=== PATIENT | male | born 1995 | race Caucasian/White ===

== ENCOUNTER 2024-03-10 04:50 | Emergency (ER) | payer MEDICAID ==
[2024-03-10] MEDS: Ondansetron 4 MG/2 ML SDV IVPUSH ONE ×2 (05:34→08:40)
[2024-03-10] MEDS: Morphine 4 MG/ML Syringe IVPUSH ONE ×2 (05:36→06:53)
[2024-03-10] MEDS: Lactated Ringers 1,000 ML IV SCH (05:42)
[2024-03-10] MEDS: Sodium Chloride 0.9% 10 ML Syringe FLUSH PRN ×2 (05:43→08:43)
[2024-03-10 05:44] LABS: BASOPHILS PERCENT AUTO 0.3 % (0.0-1.0); EOSINOPHILS PERCENT AUTO 0.3 % (0.0-6.0); HEMATOCRIT 51.5 % (42.0-52.0); IMMATURE GRAN ABSOLUTE AUTO 0.02 K/mm3 (0.00-0.05); IMMATURE GRAN PERCENT AUTO 0.3 % (0.0-0.4); LYMPHOCYTES ABSOLUTE AUTO 1.1 K/mm3 (1.0-4.8); LYMPHOCYTES PERCENT AUTO 16.9 % (24.0-44.0); MEAN CORPUSCULAR HEMOGLOBIN 34.1 pg (28.0-32.0); MEAN CORPUSCULAR VOLUME 97.5 fl (83.0-99.0); MEAN PLATELET VOLUME 10.6 fl (9.4-12.4); MONOCYTES ABSOLUTE AUTO 0.9 K/mm3 (0.0-0.8); MONOCYTES PERCENT AUTO 12.8 % (0.0-8.0); NEUTROPHILS ABSOLUTE AUTO 4.7 K/mm3 (1.8-7.7); NEUTROPHILS PERCENT AUTO 69.4 % (41.0-71.0); PLATELET COUNT,PLT 203 K/mm3 (150-400); RED BLOOD CELL COUNT 5.28 M/mm3 (4.52-5.90); WHITE BLOOD CELL COUNT,WBC 6.74 K/mm3 (3.9-11.3)
[2024-03-10 05:57] LABS: ALBUMIN 3.6 g/dl (3.4-5.0); ANION GAP 14.9 (5-15); BILIRUBIN TOTAL 1.1 mg/dL (0.2-1.0); BUN/CREATININE RATIO 2.3 (14-18); CREATININE 1.3 mg/dL (0.7-1.3); EST CRCL DRUG DOSING (CG) 86.57 mL/min; POTASSIUM,K 2.9 mEq/L (3.5-5.1); PROTEIN TOTAL,TP 7.1 g/dl (6.4-8.2)
[2024-03-10] MEDS: Potassium Chloride 10 MEQ in Premix Bag 1 BAG IV ONE (06:09)
[2024-03-10] MEDS ORDERED: Sodium Chloride 0.9% 10 ML Syringe FLUSH PRN (08:07)
[2024-03-10] MEDS ORDERED: Iopamidol 612 MG/ML 100 ML Bottle IVPUSH ONE (08:07)
[2024-03-10] MEDS: Iopamidol 612 MG/ML 100 ML Bottle IVPUSH ONE (08:43)
[2024-03-10 08:51] LABS: APPEARANCE,URINE SLT CLOUDY (Clear); BILIRUBIN,URINE 2+ (Negative); COLOR,URINE ORANGE (Yellow); GLUCOSE,URINE NEGATIVE (Negative); KETONES,URINE TRACE (Negative); LEUKOCYTE ESTERASE,URINE NEGATIVE (Negative); NITRITE,URINE NEGATIVE (Negative); OCCULT BLOOD,URINE NEGATIVE (Negative); PH,URINE 6.5 (5.0-8.0); PROTEIN,URINE 2+ (Negative)
[2024-03-10] MEDS: Morphine 4 MG/ML Syringe IVPUSH PRN (09:10)
[2024-03-10 09:43] LABS: BACTERIA,URINE MODERATE /hpf (FEW); MUCUS,URINE MODERATE /hpf (FEW); RBC,URINE 0-5 /hpf (0-5); SQUAMOUS EPITHELIAL CELLS,UR 0-5 /hpf (0-5); WBC,URINE 0-5 /hpf (0-5)
== END 2024-03-10 10:54 | disposition home or self-care (01) ==
LOC: JD.ED 04:50 → MERGE 04:50 → JD.ED 10:54
DX: R10.13 Epigastric pain (principal); R10.12 Left upper quadrant pain; E87.6 Hypokalemia; K86.2 Cyst of pancreas
CPT/HCPCS: 36415; 74177; 76705; 80053; 81001; 83690; 85025; 96361; 96365; 96375; 96376; 99284; J2270; J2405; J3480; J3490; J7120; Q9967

== ENCOUNTER 2024-03-22 07:03 | Emergency (ER) | payer MEDICAID ==
[2024-03-22] MEDS ORDERED: Thiamine 100 MG in Sodium Chloride 0.9% 100 ML IV ONE (08:11)
[2024-03-22] MEDS: LORazepam 2 MG/ML SDV IVPUSH ONE (08:27)
[2024-03-22] MEDS: Metoclopramide 10 MG/2 ML SDV IVPUSH ONE (08:30)
[2024-03-22] MEDS: Dextrose 5%-Lactated Ringers 1,000 ML IV SCH (08:34)
[2024-03-22] MEDS: HYDROmorphone 1 MG/ML Syringe IVPUSH ONE ×2 (08:34→11:14)
[2024-03-22 08:36] LABS: BASOPHILS PERCENT AUTO 0.6 % (0.0-1.0); EOSINOPHILS PERCENT AUTO 0.2 % (0.0-6.0); HEMATOCRIT 49.2 % (42.0-52.0); HEMOGLOBIN 17.1 gm/dl (14.0-18.0); IMMATURE GRAN ABSOLUTE AUTO 0.02 K/mm3 (0.00-0.05); IMMATURE GRAN PERCENT AUTO 0.4 % (0.0-0.4); LYMPHOCYTES ABSOLUTE AUTO 1.2 K/mm3 (1.0-4.8); LYMPHOCYTES PERCENT AUTO 25.6 % (24.0-44.0); MEAN CORPUSCULAR HEMOGLOBIN 35.2 pg (28.0-32.0); MEAN CORPUSCULAR HGB CONC 34.8 g/dl (32.0-36.0); MEAN CORPUSCULAR VOLUME 101.2 fl (83.0-99.0); MEAN PLATELET VOLUME 10.2 fl (9.4-12.4); MONOCYTES ABSOLUTE AUTO 0.5 K/mm3 (0.0-0.8); MONOCYTES PERCENT AUTO 10.3 % (0.0-8.0); NEUTROPHILS PERCENT AUTO 62.9 % (41.0-71.0); PLATELET COUNT,PLT 218 K/mm3 (150-400); RED BLOOD CELL COUNT 4.86 M/mm3 (4.52-5.90); WHITE BLOOD CELL COUNT,WBC 4.77 K/mm3 (3.9-11.3)
[2024-03-22] MEDS: Thiamine 200 MG/2 ML MDV IV ONE (08:37)
[2024-03-22 08:55] LABS: LACTIC ACID 3.7 mmol/L (0.4-2.0)
[2024-03-22 08:57] LABS: A/G RATIO 0.9 (1-2); ALANINE AMINOTRANSFERASE,ALT 72 U/L (16-63); ALKALINE PHOSPHATASE 149 U/L (46-116); ANION GAP 13.7 (5-15); ASPARTATE AMNIOTRANSFERASE,AST 58 U/L (15-37); BILIRUBIN TOTAL 0.8 mg/dL (0.2-1.0); BLOOD UREA NITROGEN,BUN 4 mg/dL (7-18); C-REACTIVE PROTEIN <0.05 mg/dL (<0.30); CALCIUM 8.6 mg/dL (8.5-10.1); CARBON DIOXIDE,CO2 30 mEq/L (21-32); CHLORIDE,CL 102 mEq/L (98-107); EST CRCL DRUG DOSING (CG) 112.54 mL/min; ESTIMATED GFR 104 mL/min (>60); ETHANOL BLOOD MEDICAL 0.05 gm% (0.00); GLUCOSE RANDOM 97 mg/dL (70-99); LIPASE 56 U/L (16-77); MAGNESIUM 1.6 mg/dL (1.8-2.4); POTASSIUM,K 2.7 mEq/L (3.5-5.1); PROTEIN TOTAL,TP 6.2 g/dl (6.4-8.2); SODIUM,NA 143 mEq/L (136-145)
[2024-03-22 09:51] LABS: APPEARANCE,URINE CLEAR (Clear); BILIRUBIN,URINE 1+ (Negative); COLOR,URINE DARK YELLOW (Yellow); GLUCOSE,URINE TRACE (Negative); KETONES,URINE TRACE (Negative); LEUKOCYTE ESTERASE,URINE NEGATIVE (Negative); NITRITE,URINE NEGATIVE (Negative); OCCULT BLOOD,URINE NEGATIVE (Negative); PH,URINE 8.5 (5.0-8.0); PROTEIN,URINE 2+ (Negative)
[2024-03-22 10:55] LABS: RBC,URINE 0-5 /hpf (0-5); WBC,URINE 0-5 /hpf (0-5)
[2024-03-22 10:56] LABS: BACTERIA,URINE MODERATE /hpf (FEW); MUCUS,URINE MANY /hpf (FEW); SQUAMOUS EPITHELIAL CELLS,UR 0-5 /hpf (0-5)
[2024-03-22] MEDS: Sodium Chloride 0.9% 10 ML Syringe FLUSH PRN (11:16)
[2024-03-22] MEDS: Iopamidol 612 MG/ML 100 ML Bottle IVPUSH ONE (11:26)
== END 2024-03-22 14:57 | disposition home or self-care (01) ==
LOC: JD.ED 07:03
DX: K85.20 Alcohol induced acute pancreatitis without necrosis or infection (principal); R10.12 Left upper quadrant pain; F10.90 Alcohol use, unspecified, uncomplicated; K21.9 Gastro-esophageal reflux disease without esophagitis; F17.210 Nicotine dependence, cigarettes, uncomplicated; Z79.899 Other long term (current) drug therapy
CPT/HCPCS: 36415; 74177; 80053; 80307; 81001; 82977; 83605; 83690; 83735; 83880; 85025; 86140; 96361; 96374; 96375; 96376; 99284; J1170; J2060; J2765; J3411; J3490; J7121; Q9967

== ENCOUNTER 2024-06-01 18:49 | Emergency (ER) | payer MEDICAID ==
[2024-06-01] MEDS ORDERED: Sodium Chloride 0.9% 10 ML Syringe FLUSH PRN (19:50)
[2024-06-01] MEDS: Ondansetron 4 MG/2 ML SDV IVPUSH ONE (20:49)
[2024-06-01] MEDS: Metoclopramide 10 MG/2 ML SDV IVPUSH ONE ×2 (20:49→22:41)
[2024-06-01] MEDS: Ondansetron 4 MG/2 ML SDV ONE (20:49)
[2024-06-01] MEDS: Sodium Chloride 0.9% 1,000 ML IV ONE (20:49)
[2024-06-01 21:10] LABS: BASOPHILS PERCENT AUTO 0.4 % (0.0-1.0); EOSINOPHILS PERCENT AUTO 0.3 % (0.0-6.0); HEMATOCRIT 41.8 % (42.0-52.0); HEMOGLOBIN 15.2 gm/dl (14.0-18.0); IMMATURE GRAN ABSOLUTE AUTO 0.05 K/mm3 (0.00-0.05); IMMATURE GRAN PERCENT AUTO 0.4 % (0.0-0.4); LYMPHOCYTES ABSOLUTE AUTO 1.9 K/mm3 (1.0-4.8); LYMPHOCYTES PERCENT AUTO 16.4 % (24.0-44.0); MEAN CORPUSCULAR HEMOGLOBIN 35.8 pg (28.0-32.0); MEAN CORPUSCULAR HGB CONC 36.4 g/dl (32.0-36.0); MEAN CORPUSCULAR VOLUME 98.4 fl (83.0-99.0); MEAN PLATELET VOLUME 9.8 fl (9.4-12.4); MONOCYTES ABSOLUTE AUTO 1.1 K/mm3 (0.0-0.8); MONOCYTES PERCENT AUTO 9.3 % (0.0-8.0); NEUTROPHILS ABSOLUTE AUTO 8.3 K/mm3 (1.8-7.7); NEUTROPHILS PERCENT AUTO 73.2 % (41.0-71.0); PLATELET COUNT,PLT 258 K/mm3 (150-400); RED BLOOD CELL COUNT 4.25 M/mm3 (4.52-5.90); WHITE BLOOD CELL COUNT,WBC 11.37 K/mm3 (3.9-11.3)
[2024-06-01 21:35] LABS: A/G RATIO 1.4 (1-2); ALBUMIN 4.1 g/dl (3.4-5.0); ANION GAP 16.9 (5-15); BILIRUBIN TOTAL 1.4 mg/dL (0.2-1.0); BUN/CREATININE RATIO 12.2 (14-18); CREATININE 0.9 mg/dL (0.7-1.3); EST CRCL DRUG DOSING (CG) 128.99 mL/min; POTASSIUM,K 2.9 mEq/L (3.5-5.1); PROTEIN TOTAL,TP 7.1 g/dl (6.4-8.2); TSH 1.508 uIU/mL (0.358-3.74)
[2024-06-01] MEDS ORDERED: Naloxone 0.4 MG/ML SDV IVPUSH PRN (21:45)
[2024-06-01] MEDS: Iopamidol 612 MG/ML 100 ML Bottle IVPUSH ONE (21:58)
[2024-06-01] MEDS: HYDROmorphone 0.5 MG/0.5 ML Syringe IVPUSH ONE (22:09)
[2024-06-01] MEDS: Sodium Chloride 0.9% 500 ML ONE (22:16)
[2024-06-01] MEDS: Potassium Chloride 10 MEQ in Premix Bag 1 BAG IV SCH (22:16)
[2024-06-01] MEDS: Potassium Chloride 20 MEQ Tab.ER PO ONE (22:41)
[2024-06-02] MEDS ORDERED: HYDROmorphone 0.5 MG/0.5 ML Syringe IVPUSH ONE (00:08)
== END 2024-06-02 00:46 | disposition home or self-care (01) ==
LOC: JD.ED 18:49
DX: K85.20 Alcohol induced acute pancreatitis without necrosis or infection (principal); F17.210 Nicotine dependence, cigarettes, uncomplicated; I10 Essential (primary) hypertension; K21.9 Gastro-esophageal reflux disease without esophagitis; Z79.899 Other long term (current) drug therapy; Z91.018 Allergy to other foods
CPT/HCPCS: 36415; 74177; 80053; 80143; 80179; 80307; 83690; 84443; 85025; 93005; 96361; 96365; 96366; 96375; 96376; 99284; A9270; J1170; J2405; J2765; J3480; J7030; J7040; Q9967; 93010

== ENCOUNTER 2024-06-15 04:33 | Emergency (ER) | payer MEDICAID ==
[2024-06-15] MEDS ORDERED: Sodium Chloride 0.9% 10 ML Syringe FLUSH PRN (04:56)
[2024-06-15] MEDS: Sodium Chloride 0.9% 10 ML Syringe FLUSH ONE (05:18)
[2024-06-15] MEDS: Iopamidol 755 Mg/ML 100 ML Bottle IVPUSH ONE (05:18)
[2024-06-15] MEDS: Sodium Chloride 0.9% 1,000 ML IV ONE (05:21)
[2024-06-15] MEDS: Ondansetron 4 MG/2 ML SDV IVPUSH ONE ×2 (05:22→08:44)
[2024-06-15] MEDS: HYDROmorphone 1 MG/ML Syringe IVPUSH ONE (05:25)
[2024-06-15 05:34] LABS: A/G RATIO 1.2 (1-2); ALBUMIN 3.6 g/dl (3.4-5.0); ANION GAP 14.8 (5-15); BILIRUBIN TOTAL 2.1 mg/dL (0.2-1.0); BUN/CREATININE RATIO 6.7 (14-18); CALCIUM 9.4 mg/dL (8.5-10.1); CREATININE 1.2 mg/dL (0.7-1.3); EST CRCL DRUG DOSING (CG) 95.26 mL/min; MAGNESIUM 1.1 mg/dL (1.8-2.4); POTASSIUM,K 2.8 mEq/L (3.5-5.1); PROTEIN TOTAL,TP 6.7 g/dl (6.4-8.2)
[2024-06-15 05:39] LABS: BASOPHILS PERCENT AUTO 0.5 % (0.0-1.0); EOSINOPHILS ABSOLUTE AUTO 0.1 K/mm3 (0.0-0.4); EOSINOPHILS PERCENT AUTO 0.8 % (0.0-6.0); HEMATOCRIT 43.1 % (42.0-52.0); HEMOGLOBIN 15.3 gm/dl (14.0-18.0); IMMATURE GRAN ABSOLUTE AUTO 0.04 K/mm3 (0.00-0.05); IMMATURE GRAN PERCENT AUTO 0.5 % (0.0-0.4); LYMPHOCYTES ABSOLUTE AUTO 1.3 K/mm3 (1.0-4.8); MEAN CORPUSCULAR HGB CONC 35.5 g/dl (32.0-36.0); MEAN CORPUSCULAR VOLUME 101.4 fl (83.0-99.0); MEAN PLATELET VOLUME 10.4 fl (9.4-12.4); MONOCYTES ABSOLUTE AUTO 0.7 K/mm3 (0.0-0.8); MONOCYTES PERCENT AUTO 8.5 % (0.0-8.0); NEUTROPHILS ABSOLUTE AUTO 6.3 K/mm3 (1.8-7.7); NEUTROPHILS PERCENT AUTO 74.7 % (41.0-71.0); PLATELET COUNT,PLT 225 K/mm3 (150-400); RED BLOOD CELL COUNT 4.25 M/mm3 (4.52-5.90); WHITE BLOOD CELL COUNT,WBC 8.48 K/mm3 (3.9-11.3)
[2024-06-15] MEDS ORDERED: Magnesium Sulfate (4.06 MEQ/ML) 5 GM/10 ML SDV IV ONE ×2 (06:00→06:18)
[2024-06-15 06:09] LABS: APPEARANCE,URINE CLEAR (Clear); BILIRUBIN,URINE 1+ (Negative); COLOR,URINE DARK YELLOW (Yellow); GLUCOSE,URINE NEGATIVE (Negative); KETONES,URINE NEGATIVE (Negative); LEUKOCYTE ESTERASE,URINE NEGATIVE (Negative); NITRITE,URINE NEGATIVE (Negative); OCCULT BLOOD,URINE TRACE-INTACT (Negative); PROTEIN,URINE 1+ (Negative); UROBILINOGEN,URINE 0.2 (0.2-1.0)
[2024-06-15] MEDS ORDERED: Magnesium Sulfate/Water 100 ML IV ONE (06:15)
[2024-06-15] MEDS: Magnesium Sulfate (4 meq/ML) 10 GM/20 ML SDV IV ONE (06:25)
[2024-06-15 06:30] LABS: BACTERIA,URINE FEW /hpf (FEW); EPITHELIAL CELLS,URINE 0-5 /hpf (0-5); MUCUS,URINE NOT SEEN /hpf (FEW); RBC,URINE 0-5 /hpf (0-5)
[2024-06-15] MEDS: Magnesium Sulfate/Water 50 ML IV ONE ×2 (06:33→09:15)
[2024-06-15] MEDS: Potassium Chloride 10 MEQ in Premix Bag 1 BAG IV SCH (06:33)
[2024-06-15] MEDS: Potassium Chloride 20 MEQ Tab.ER PO ONE (06:34)
[2024-06-15] MEDS ORDERED: Naloxone 0.4 MG/ML SDV IVPUSH PRN (08:08)
[2024-06-15] MEDS: HYDROmorphone 0.5 MG/0.5 ML Syringe IVPUSH ONE (08:46)
[2024-06-15 09:13] LABS: MAGNESIUM 2.1 mg/dL (1.8-2.4); POTASSIUM,K 3.2 mEq/L (3.5-5.1)
== END 2024-06-15 10:26 | disposition home or self-care (01) ==
LOC: JD.ED 04:33
DX: R10.12 Left upper quadrant pain (principal); F10.10 Alcohol abuse, uncomplicated; E87.6 Hypokalemia; E83.42 Hypomagnesemia; F17.210 Nicotine dependence, cigarettes, uncomplicated; I10 Essential (primary) hypertension; K21.9 Gastro-esophageal reflux disease without esophagitis; Z79.899 Other long term (current) drug therapy; Z91.018 Allergy to other foods
CPT/HCPCS: 36415; 74177; 80053; 81001; 83690; 83735; 84132; 85025; 96361; 96365; 96366; 96368; 96375; 96376; 99284; A9270; J1170; J2405; J3475; J3480; J3490; J7030; Q9967